=== PATIENT | male | born 2000 | race Asian ===

== ENCOUNTER 2018-10-01 18:10 | Emergency (ER) | payer BC ==
[2018-10-01] MEDS ORDERED: Ketorolac Tromethamine 30 MG/ML VIAL ONE (19:14)
--- NOTE | 2018-10-01 20:03 | RAD ---
THREE VIEWS OF THE LEFT ANKLE 10/01/18 COMPARISON: None. HISTORY: Injury, trauma, pain. FINDINGS: There is prominent soft tissue swelling laterally. The talar dome and ankle mortise appear intact. No displaced fracture or evidence of dislocation is seen. There is anterior soft tissue swelling with e vidence of an ankle joint effusion on the lateral examination. IMPRESSION: Soft tissue swelling. No displaced fracture or dislocation. POS: [facility]
== END 2018-10-01 19:50 | disposition home or self-care (01) ==
LOC: SCSER 18:10
DX: S93.402A Sprain of unspecified ligament of left ankle, initial encounter (principal); X50.1XXA Overexertion from prolonged static or awkward postures, initial encounter
CPT/HCPCS: 96372; J1885